=== PATIENT | female | born 1995 | race Caucasian/White ===

== ENCOUNTER 2021-07-15 15:28 | Outpatient (REF) | payer OTHER, SELFPAY ==
--- NOTE | 2021-07-15 13:40 | PAPFT_PTH ---
PATIENT: Ailin Meke LOC: [facility] U#:[id number] AGE/SX: 26/F ROOM: RE07/15/[address]: Marilou Benítez MD : 1995 BED: DIS: 07/15/2021 SPEC #: [id number] RECD: 07/15/21 17:58 STATUS: BELA REЕлена #: [id number] FERNANDO: 07/15/21 13:[address]: Marilou Benítez DEPT: [facility] Cytology RECD BY: Rebecca Timmons ENTERED: 07/15/21 17:58 SP TYPE: PAPFT HOWIE DR: Andres Hodge, ALEXYS Tissues: 1 - CX/ENDOCX FOR PAP SMEARS Procedures: PAP THIN PREP/[facility]VM Screening Comments: [id number]
== END 2021-07-15 15:29 | disposition home or self-care (01) ==
LOC: LBN 15:28
PROVIDERS: PCP Nurse Practitioner Family; Visit Provider Obstetrics & Gynecology
DX: Z12.4 Encounter for screening for malignant neoplasm of cervix (principal)
CPT/HCPCS: 88142

== ENCOUNTER 2021-12-20 11:49 | Outpatient (REF) | payer OTHER, SELFPAY ==
[2021-12-21 13:02] LABS: COVID-19 RT-PCR UVMMC Result Negative (Negative)
== END 2021-12-20 11:50 | disposition home or self-care (01) ==
LOC: LBN 11:49
PROVIDERS: PCP Nurse Practitioner Family; Visit Provider Nurse Practitioner Family
DX: Z20.822 Contact with and (suspected) exposure to COVID-19 (principal)
CPT/HCPCS: U0003

== ENCOUNTER 2022-02-15 10:15 | Emergency (ER) | payer OTHER, SELFPAY ==
[2022-02-15 10:18] VITALS: BP 132/70; PULSE 114; RESP 16; TEMP 36.1; O2SAT 98
--- NOTE | 2022-02-15 10:44 | W.ED.GENAD ---
Discharge Plan Disposition Patient Disposition: HOME Condition: Stable Discharge Details Clinical Impression: Upper respiratory virus Primary Care Provider: Andres Hodge ED Provider: Rebecca Cifuentes Home Meds and New Rx's Prescriptions: Continued bupropion HCl 150 mg tablet extended release 24 hr 150 mg PO QAM 0RF escitalopram oxalate [Lexapro] 20 mg tablet 20 mg PO DAILY 0RF Discharge Instructions Instructions: Upper Respiratory Infection (ED), COVID-19 (Coronavirus Disease 2019) (ED), COVID-19: Slow the Coronavirus Spread (ED) Additional Instructions: Ibuprofen and Tylenol as needed for fever and pain control Regular fluid hydration You must continue to isolate for 5 additional days and then wearing a mask if you leave your home from day 5 to be 10 and while you remain symptomatic or at least you have been fever free for 24 hours Stand Alone Forms: PENDING COVID-19 TESTING, Work Release Referrals: Andres Hodge, ACTING INSTRUCTOR [Primary Care Provider] - Discharge Data Discharge Date/Time-TO BE ENTERED AT DEPARTURE: 02/15/22 10:52 Medical Decision Making Repeat pulse 105 Patient is nontoxic in appearance, encourage hydration She is pending COVID PCR test and will continue to isolate Suspect viral etiology of patient complaint, able to tolerate p.o. Will take ibuprofen and Tylenol for fever control Recheck with adolescent psychiatrist in 24 to 48 hours recommended Early return precautions discussed and patient expressed understanding Medical Records Medical records reviewed: Yes I reviewed the patient's medical records. Lab Data Lab results reviewed: Yes I reviewed the patient's lab results. HPI General Date/Time Provider Initiated Documentation: 02/15/22 10:42. HPI Narrative: This 26-year-old female presents with report of sore throat, myalgias, rhinorrhea, and cough. Denies any shortness of breath. States her immediate positive COVID-19. Fully vaccinated and boostered. Denies chance of . Denies any nausea, vomiting, shortness of breath, chest discomfort. Has taken [id number] medications Related Data Home Medications Medication Instructions Recorded Confirmed escitalopram oxalate 20 mg tablet 20 mg PO DAILY 05/31/21 02/15/22 (Lexapro) bupropion HCl 150 mg 24 hr tablet, 150 mg PO QAM 06/25/21 02/15/22 extended release Allergies Allergy/AdvReac Type Severity Reaction Status Date / Time No Known Allergies Allergy Verified 02/15/22 10:22 General Stated Complaint: Sorethroat BENITO: 4 Review of Systems All systems reviewed & are unremarkable except as noted in HPI and below PFSH All Active Problems (Updated 02/15/22 @ 10:48 by FAVIOLA Willams) Upper respiratory virus (Acute) Bartholin cyst (Acute) RORY (stress urinary incontinence, female) (Acute) Migraine (Chronic) Dysmenorrhea (Acute) Depression (Chronic) Anxiety (Chronic) Overweight (Acute) Medical History (Updated 02/15/22 @ 10:48 by FAVIOLA Willams) Hyperactivity of bladder Family History (Updated 05/07/21 @ 09:10 by Taylor Abdullahi) Father No problems noted. Mother No problems noted. Brother No problems noted. Social History (Updated 07/15/21 @ 14:15 by Marilou Benítez MD) Smoking/Tobacco Use Status: Never Second Hand Exposure: Yes Smoking risk assessment performed?: Yes Alcohol Intake: never Drug use: Never Substance use type: does not use Caregiver/Support person: No Communication Needs: Corrective Lenses Do you need help understanding health information?: Rarely Pets and animals: Yes Pets and animals: cat(s), dog(s) and hamster(s) Sexually active: No (never) Do you think of yourself as: bisexual Current gender identity: female What is your relationship status?: never How often do you talk on the phone with friends or family?: once per week How often do you get together with friends or relatives?: decline to answer How often do you attend pentecostal or spiritism services?: decline to answer Do you belong to any clubs or organized social groups?: no Panel score (0-1 are the most socially isolated patients): 0 What type of physical activity do you participate in: walking Duration: 15-30 minutes/day Carline/Christianity: spiritual Seatbelt use: always Helmet use: Yes Helmet use: always Do you feel safe at home: Yes Do you feel safe in your relationship?: Yes History History 0 Para Hx # Term Pregnancies Multiple births Hx # Pregnancies Ectopic pregnancies AB induced Hx Number of Living Children AB spontaneous Exam Const General: cooperative, comfortable and no acute distress HENMT Other: Moist mucous membrane Eyes Pupils: PERRL Resp Effort & Inspection: normal respiratory effort Auscultation: clear to auscultation bilaterally Cardio Rate: regular rate Rhythm: regular rhythm GI Other: Nontender abdominal exam Skin General skin exam: no rashes or lesions noted Neuro General: patient alert and patient oriented x3 Course Vital Signs Vital signs: Vital Signs Temperature 36.1 C L 02/15/22 10:18 Pulse 114 H 02/15/22 10:18 Respiratory Rate 16 02/15/22 10:18 Blood Pressure 132/70 02/15/22 10:18 Pulse Oximetry 98 02/15/22 10:18 Temperature 36.1 C L 02/15/22 10:18 Pulse 114 H 02/15/22 10:18 Respiratory Rate 16 02/15/22 10:18 Respiratory Effort 02/15/22 10:23 Blood Pressure 132/70 02/15/22 10:18 Pulse Oximetry 98 02/15/22 10:18
[2022-02-15 10:52] VITALS: PULSE 114; RESP 16; TEMP 37.2; O2SAT 99
[2022-02-16 16:11] LABS: COVID-19 RT-PCR UVMMC Result Positive (Negative)
== END 2022-02-15 10:52 | disposition home or self-care (01) ==
PROVIDERS: Emergency Provider Physician Assistant; PCP Nurse Practitioner Family
DX: U07.1 COVID-19 (principal); J06.9 Acute upper respiratory infection, unspecified
CPT/HCPCS: 99282; U0003

== ENCOUNTER 2022-02-21 11:11 | Emergency (ER) | payer OTHER, SELFPAY ==
[2022-02-21 11:34] VITALS: BP 124/79; PULSE 95; RESP 18; TEMP 36.4; O2SAT 98
--- NOTE | 2022-02-21 12:00 | RT.EKG_ITS ---
APPROVED REPORT Exam: Resting ECG Reason for Exam: CP, known COVID Patient Location: E HR:80 bpm ECG Measurements Heart Rate 80 AXIS MS 141 P 40 QRSd 87 QRS 8 QT 383 T 6 QTc 443 Conclusion Sinus rhythm...normal P axis, V-rate 60- 99 no STEMI, non-diagnostic EKG I have reviewed and interpreted ECG and agree with software generated interpretation.
--- NOTE | 2022-02-21 12:00 | DI.RAD_ITS ---
Exam(s) XR PORTABLE CHEST AP EXAM: XR PORTABLE CHEST AP CLINICAL HISTORY: increase SOB, known covid TECHNIQUE: 2D digital imaging was performed of the chest. One image was obtained. An AP view was ob tained. COMPARISON: No exams were available for comparison FINDINGS: MEDIASTINUM: Normal. HEART: Normal. PULMONARY VASCULATURE: Normal. LUNGS: Clear. PLEURAL SPACE: No pleural effusion or pneumothorax. BONE:Within normal limits for the patient's age. OTHER FINDINGS:Normal. IMPRESSION: No acute pulmonary findings. DATA REPOSITORY: RADIATION DOSE DELIVERED:
--- NOTE | 2022-02-21 12:13 | W.ED.GENAD ---
Discharge Plan Disposition Patient Disposition: HOME Condition: Stable Discharge Details Clinical Impression: COVID-19 Primary Care Provider: Andres Hodge ED Provider: Shanda Jo Home Meds and New Rx's Prescriptions: New benzonatate 100 mg capsule 100 mg PO TID PRN (Reason: cough) Qty: 10 0RF Continued bupropion HCl 150 mg tablet extended release 24 hr 150 mg PO QAM escitalopram oxalate [Lexapro] 20 mg tablet 20 mg PO DAILY Discharge Instructions Instructions: COVID-19 (Coronavirus Disease 2019) (ED) Additional Instructions: Your x-ray and labs are reassuring here today. Pain is not distant with any blood clots in your lungs, issues with your heart. This is likely associated with discomfort from you coughing so frequently. Please continue to encourage hydration. Tylenol and or ibuprofen as needed for discomfort. Please continue to quarantine until you have had a negative COVID test or have been cleared by your primary care provider. If you develop shortness of breath, breathing, increased pain or other new/worsening symptom please seek care urgently once again. Otherwise, please follow-up with primary care in the next 1 to 2 weeks for reevaluation Stand Alone Forms: Work Release Referrals: Andres Hodge, PURCHASING ASSOCIATE [Primary Care Provider] - Discharge Data Discharge Date/Time-TO BE ENTERED AT DEPARTURE: 02/21/22 14:57 Medical Decision Making Patient is a pleasant 26-year-old female, up-to-date on COVID-19 vaccinations, COVID positive, presenting today with increased shortness of breath, more frequent cough and chest discomfort. States that she was diagnosed 5 days ago. Increase shortness of breath and chest discomfort has progressively been increasing over the past few days. Denies any GI symptoms. Has had a diminished appetite but states that she is been hydrating well. Denies any hemoptysis or productive cough. States that she is also had a sore throat and associates this with coughing. Patient is not on any estrogen supplementation, recent travel. On exam, patient appears nontoxic. Lungs are clear. She does have a frequent dry cough. Patient is slightly tachycardic with a heart rate of 95 the patient states that this is baseline for her. She states that last week she was running in the 1 teens. No lower extremity edema or calf discomfort, All symptoms could be attributed to the progression of her known COVID diagnosis, I am also concerned potential PE. Also considered myocarditis, pleuritis versus other. Will obtain baseline labs, hydrate the patient and obtain chest x-ray. Discussed this plan with the patient who is in agreement. MEDIASTINUM: Normal.? HEART: Normal. PULMONARY VASCULATURE: Normal. LUNGS: Clear.? PLEURAL SPACE: No pleural effusion or pneumothorax. BONE:Within normal limits for the patient's age. OTHER FINDINGS:Normal.? IMPRESSION: No acute pulmonary findings. Labs reviewed. D-dimer WNL. Troponin WNL. Labs otherwise unremarkable. Discussed with patient. Encouraged hydration. She questioned if she could return to work. With her frequency of cough, I advised against this. Advised that she should wait until negative test or clearance by PCP. Discussed supportive care. Return precautions given. Advised f/u with PCP. All of her questions and concerns were addressed, sh eis in agreement with this plan. HPI General Date/Time Provider Initiated Documentation: 02/21/22 12:02. Limitations to Documentation: no limitations. Information obtained by: patient, family and RN notes reviewed. History of Present Illness 26 year old F presents to the emergency department with the chief complaint of worsening cough in setting of known COVID, sore throat, described as moderate, with intensity rated at 5. Quality is described as aching, and is localized to the mouth (throat) and chest. Patient reports no radiation. Patient started experiencing this day(s) (8) and it has been constant. No relieving factors improve symptom(s), No exacerbating factors reported . Patient notes chest pain, cough, loss of appetite, malaise and shortness of breath; denies diaphoresis, fever/chills, nausea/vomiting, rash, syncope and weakness. Patient did receive the following treatments prior to arrival, none Related Data Home Medications Medication Instructions Recorded Confirmed escitalopram oxalate 20 mg tablet 20 mg PO DAILY 05/31/21 02/15/22 (Lexapro) bupropion HCl 150 mg 24 hr tablet, 150 mg PO QAM 06/25/21 02/15/22 extended release benzonatate 100 mg capsule 100 mg PO TID PRN cough #10 caps 02/21/22 Previous Rx's Medication Instructions Recorded benzonatate 100 mg capsule 100 mg PO TID PRN cough #10 caps 02/21/22 Allergies Allergy/AdvReac Type Severity Reaction Status Date / Time No Known Allergies Allergy Verified 02/15/22 10:22 General Stated Complaint: RespSymp BENITO: 4 Review of Systems Constitutional Constitutional: Reports as per HPI and Denies headache(s) Eyes Eyes: Reports as per HPI, Denies eye discharge and Denies irritation ENT Ears, Nose, Mouth, and Throat: Reports as per HPI and Denies headache(s) Cardiovascular Cardiovascular: Reports as per HPI, Reports chest pain (with cough), Denies lightheadedness and Reports dyspnea Respiratory Respiratory: Reports as per HPI, Reports cough, Denies hemoptysis, Reports pain on inspiration, Reports pain with cough, Reports dyspnea and Denies wheezing Gastrointestinal Gastrointestinal: Reports as per HPI, Denies abdominal pain, Denies change in bowel habits, Denies nausea and Denies vomiting Integumentary/Breasts Skin/Breast: Reports as per HPI and Denies rash Neurologic Neurologic: Reports as per HPI and Denies headache(s) Allergic/Immunologic Allergic/Immunologic: Denies wheezing PFSH All Active Problems (Updated 02/21/22 @ 14:33 by FAVIOLA Alex) Upper respiratory virus (Acute) COVID-19 (Acute) Bartholin cyst (Acute) RORY (stress urinary incontinence, female) (Acute) Migraine (Chronic) Dysmenorrhea (Acute) Depression (Chronic) Anxiety (Chronic) Overweight (Acute) Medical History (Updated 02/21/22 @ 14:33 by FAVIOLA Alex) Hyperactivity of bladder Family History (Updated 05/07/21 @ 09:10 by Taylor Abdullahi) Father No problems noted. Mother No problems noted. Brother No problems noted. Social History (Updated 07/15/21 @ 14:15 by Marilou Benítez MD) Smoking/Tobacco Use Status: Never Second Hand Exposure: Yes Smoking risk assessment performed?: Yes Alcohol Intake: never Drug use: Never Substance use type: does not use Caregiver/Support person: No Communication Needs: Corrective Lenses Do you need help understanding health information?: Rarely Pets and animals: Yes Pets and animals: cat(s), dog(s) and hamster(s) Sexually active: No (never) Do you think of yourself as: bisexual Current gender identity: female What is your relationship status?: never How often do you talk on the phone with friends or family?: once per week How often do you get together with friends or relatives?: decline to answer How often do you attend restorationism or rastafari services?: decline to answer Do you belong to any clubs or organized social groups?: no Panel score (0-1 are the most socially isolated patients): 0 What type of physical activity do you participate in: walking Duration: 15-30 minutes/day Carline/Confucianism: spiritual Seatbelt use: always Helmet use: Yes Helmet use: always Do you feel safe at home: Yes Do you feel safe in your relationship?: Yes History History 0 Para Hx # Term Pregnancies Multiple births Hx # Pregnancies Ectopic pregnancies AB induced Hx Number of Living Children AB spontaneous Exam Const General: cooperative, healthy appearing, comfortable, no acute distress, well developed and well groomed Nutritional Appearance: well nourished and overweight Orientation: alert and awake [facility] Head: normal to inspection, normocephalic and atraumatic General nose exam: external nose normal and nares normal Face and sinus: normal facial exam, sinuses nontender and face symmetric Mouth: oral mucosae normal, lip normal, tongue normal, oropharynx normal and moist mucous membranes Teeth and gingiva: dentition normal Throat: posterior oropharynx normal, tonsils normal and uvula midline Eyes General: appearance normal, both eyes and all related structures Neck Neck: normal visual inspection, full ROM, no lymphadenopathy and no meningeal signs Resp Effort & Inspection: normal respiratory effort, able to speak in complete sentences and no respiratory distress Auscultation: clear to auscultation bilaterally, no rales, no rhonchi and no wheezes Cardio Rate: regular rate Rhythm: regular rhythm Heart Sounds: S1 normal and S2 normal Skin General skin exam: no rashes or lesions noted Neuro General: patient alert and patient awake Cognition: normal cognition Speech: speech normal Gait: normal gait Extrem General: normal to inspection, no pedal edema and no calf tenderness Psych Appearance: grossly normal and well kempt Mental Status: mental status grossly normal Speech and Movement: speech and movement normal Course Vital Signs Vital signs: Vital Signs Temperature 36.4 C L 02/21/22 11:34 Pulse 95 H 02/21/22 11:34 Respiratory Rate 18 02/21/22 11:34 Blood Pressure 124/79 02/21/22 11:34 Pulse Oximetry 98 02/21/22 11:34 Temperature 36.4 C L 02/21/22 11:34 Temperature Source Temporal Artery Scan 02/21/22 11:34 Pulse 95 H 02/21/22 11:34 Respiratory Rate 18 02/21/22 11:34 Blood Pressure 124/79 02/21/22 11:34 Blood Pressure Position Sitting 02/21/22 11:34 Pulse Oximetry 98 02/21/22 11:34 Oxygen Delivery Method Room Air 02/21/22 11:34 Oxygen Flow Rate 0 02/21/22 11:34 Pain Level 5 02/21/22 11:34
[2022-02-21] MEDS: Normal Saline 1,000 ML 1000 ML IV (13:13)
[2022-02-21] MEDS: Normal Saline Flush 10 ML SYR IVP (13:13)
[2022-02-21 13:15] LABS: Abs Immature Grans 0.02 10^3/uL (0.0-0.06); Absolute Basophil Count 0.03 10^3/uL (0.0-0.2); Absolute Lymphocyte Count 2.48 10^3/uL (1.2-3.4); Absolute Monocyte Count 0.32 10^3/uL (0.1-0.8); Absolute Neutrophil Count 3.81 10^3/uL (1.2-6.7); Basophils % 0.4; Eosinophils % 4.3; HGB 12.4 g/dL (11.2-15.7); Immature Grans % 0.3; Lymphocytes % 35.6; MCH 25.9 pg (27.0-33.0); MCHC 31.8 % (32.0-36.0); MCV 82 fL (80-95); MPV 10.2 fL (8.0-11.0); Monocytes % 4.6; Neutrophils % 54.8; Platelet Count 290 10^3/uL (130-400); RBC 4.78 10^6/uL (3.93-5.22); RDW-SD 38.6 fL; WBC 6.96 10^3/uL (4.4-10.8)
[2022-02-21 13:38] LABS: ALT 21 U/L (14-59); AST 16 U/L (15-37); Albumin 3.5 g/dL (3.4-5.0); Alkaline Phosphatase 112 U/L (46-116); Anion Gap 8.7 mmol/L (3-11); BUN 10 mg/dL (7-18); Bilirubin, Total 0.3 mg/dL (0.2-1.0); CO2 26.3 mmol/L (21.0-32.0); CREATININE 0.8 mg/dL (0.55-1.02); Calcium 8.5 mg/dL (8.5-10.1); Chloride 105 mmol/L (98-107); Glucose 80 mg/dL (74-106); Potassium 3.7 mmol/L (3.5-5.1); Sodium 140 mmol/L (136-145); Total Protein 7.9 g/dL (6.4-8.2); Troponin I < 50 ng/L (<or=60)
[2022-02-21 13:56] LABS: D-Dimer 233 ng/mlFEU (<500)
== END 2022-02-21 14:57 | disposition home or self-care (01) ==
PROVIDERS: Emergency Provider Physician Assistant; PCP Nurse Practitioner Family
DX: U07.1 COVID-19 (principal)
CPT/HCPCS: 36415; 80053; 93005; 96360; 99284; 71045; 84484; 85025; 85379; 93010; 99283

== ENCOUNTER 2022-03-24 17:42 | Outpatient (REF) | payer OTHER, SELFPAY | END 2022-03-24 17:43 | disposition home or self-care (01) | LOC: LBN 17:42 | PROVIDERS: PCP Nurse Practitioner Family; Visit Provider Nurse Practitioner Family | DX: J02.9 Acute pharyngitis, unspecified (principal) | CPT/HCPCS: 87070 ==

== ENCOUNTER 2023-01-06 15:44 | Outpatient (RCR) | payer BC, SELFPAY ==
--- NOTE | 2023-01-06 15:00 | PAPFT_PTH ---
PATIENT: Ailin Meek LOC: [facility] U#:[id number] AGE/SX: 27/F ROOM: RE01/06/[address]: Marilou Benítez MD : 1995 BED: DIS: 01/06/2023 SPEC #: [id number] RECD: 01/08/23 07:37 STATUS: BELA REQ #: [id number] FERNANDO: 01/06/23 15:[address]: Marilou Benítez DEPT: [facility] Cytology RECD BY: Sabiha Higuera ENTERED: 01/08/23 07:38 SP TYPE: PAPFT OTHR DR: Andres Hodge, ALEXYS Tissues: 1 - CX/ENDOCX FOR PAP SMEARS Procedures: PAP THIN PREP/[facility] Screening Comments: [id number]
== END 2023-01-06 23:59 | disposition home or self-care (01) ==
LOC: LBN 15:44
PROVIDERS: PCP Nurse Practitioner Family; Visit Provider Obstetrics & Gynecology
DX: Z11.51 Encounter for screening for human papillomavirus (HPV) (principal)
CPT/HCPCS: 88142

== ENCOUNTER 2023-01-31 12:34 | Outpatient (CLI) | payer BC, SELFPAY | END 2023-01-31 12:35 | disposition home or self-care (01) | LOC: ORDER INT 12:35 | PROVIDERS: PCP Nurse Practitioner Family; Visit Provider Obstetrics & Gynecology Gynecology | DX: R10.2 Pelvic and perineal pain (principal) ==

== ENCOUNTER 2023-11-14 04:32 | Outpatient (CLI) | payer BC, SELFPAY ==
[2023-11-14 16:43] LABS: Hemoglobin A1C 5.6 % (<5.7)
[2023-11-15 13:54] LABS: Calculated LDL 85 mg/dL (<100); Cholesterol 158 mg/dL (<200); HDL Cholesterol 46 mg/dL (40-60); Triglyceride 139 mg/dL (<150)
== END 2023-11-14 04:33 | disposition home or self-care (01) ==
PROVIDERS: PCP Nurse Practitioner Family; Visit Provider Nurse Practitioner Family
DX: Z13.220 Encounter for screening for lipoid disorders (principal); Z13.1 Encounter for screening for diabetes mellitus
CPT/HCPCS: 36415; 80061; 83036

== ENCOUNTER → 2024-01-29 16:48 | Outpatient (CLI) | payer BC, SELFPAY ==
--- NOTE | 2024-01-29 16:56 | DI.RAD_ITS ---
Exam(s) XR CHEST 2V PA LATERAL EXAM: XR CHEST 2V PA LATERAL CLINICAL HISTORY: R05.9 cough, fever. TECHNIQUE: 2D digital imaging was performed. COMPARISON: Chest x-ray 02/21/2022 FINDINGS: 2 views: Heart size is normal. The mediastinum is not widened. Lungs are clear. No infiltrates nor pleural effusions. IMPRESSION: No acute pulmonary findings. DATA REPOSITORY: RADIATION DOSE DELIVERED:
--- NOTE | 2024-01-29 17:19 | DI.VRAD_ITS ---
PROCEDURE INFORMATION: Exam: XR Chest Exam date and time: 01/29/2024 4:39 PM Age: 28 years old Clinical indication: Cough and fever; Patient HX: Cough, fever TECHNIQUE: Imaging protocol: Radiologic exam of the chest. Views: 2 views. COMPARISON: CR XR PORTABLE CHEST AP 02/21/2022 1:56 PM FINDINGS: Lungs: Unremarkable. No consolidation. Pleural spaces: Unremarkable. No pleural effusion. No pneumothorax. Heart/Mediastinum: Unremarkable. No cardiomegaly. Bones/joints: Unremarkable. IMPRESSION: No acute cardiopulmonary findings. Dictated and Authenticated by: Micheal Schulz MD. Ordering:MELISSA Hernandez MD
== END ==
PROVIDERS: PCP Nurse Practitioner Family; Visit Provider Nurse Practitioner Acute Care
DX: R05.9 Cough, unspecified (principal)
CPT/HCPCS: 71046

== ENCOUNTER 2024-05-06 21:28 | Outpatient (REF) | payer BC, SELFPAY | END 2024-05-06 21:29 | disposition home or self-care (01) | LOC: NCHCN 21:28 | PROVIDERS: PCP Nurse Practitioner Family; Visit Provider Physician Assistant | DX: J02.9 Acute pharyngitis, unspecified (principal) | CPT/HCPCS: 87070 ==

== ENCOUNTER 2025-05-27 17:08 | Outpatient (CLI) | payer BC, SELFPAY ==
[2025-05-27 16:50] LABS: TSH (W/Ref FT4) 1.59 uIU/mL (0.36-3.74)
[2025-06-12 17:03] LABS: Testosterone, Free 0.62 ng/dL (<0.13-1.06)
== END 2025-05-27 17:09 | disposition home or self-care (01) ==
LOC: LBO 17:16
PROVIDERS: PCP Nurse Practitioner Family; Visit Provider Obstetrics & Gynecology
DX: N92.6 Irregular menstruation, unspecified (principal); N92.0 Excessive and frequent menstruation with regular cycle; L68.9 Hypertrichosis, unspecified
CPT/HCPCS: 36415; 84402; 84403; 82670; 84443